=== PATIENT | male | born 1935 | race Caucasian/White ===

== ENCOUNTER 2018-06-05 22:33 | Inpatient (IN) | payer OTHER, MEDICAID ==
[~2018-06-05] VITALS: Ht 167.6 cm; Wt 80.7 kg
[2018-06-06 01:22] LABS: BASOPHILS % 0.3 % (0.0-2.0); EOSINOPHILS % 0.1 % (0.0-5.0); HEMATOCRIT. 37.8 % (42.0-52.0); LYMPHOCYTES % 9.7 % (20.0-50.0); MEAN CORPUSCULAR HEMOGLOBIN 30.1 pg (28.0-32.0); MEAN CORPUSCULAR VOLUME 87.5 fL (80.0-94.0); MEAN PLATELET VOLUME 6.8 fl (7.4-10.4); MONOCYTES % 12.9 % (2.0-8.0); PLATELET 177 x1000/uL (130-400); RED BLOOD CELL COUNT 4.32 mill/uL (4.7-6.1)
[2018-06-06 01:29] LABS: CHLORIDE 103 mEq/L (98-107)
[2018-06-06 01:32] LABS: ETHANOL BLOOD < 10 mg/dL
[2018-06-06 01:37] LABS: CREATINE KINASE 604 IU/L (39-308)
[2018-06-06 01:40] LABS: CREATINE KINASE MB FRACTION 4.2 ng/mL (0.5-3.6)
[2018-06-06 02:29] LABS: CLARITY URINE CLOUDY (CLEAR); COLOR URINE YELLOW (YELLOW); KETONES URINE NEGATIVE (NEGATIVE); LEUKOCYTE ESTERASE URINE 3+ (NEGATIVE); NITRITE URINE POSITIVE (NEGATIVE); OCCULT BLOOD URINE 2+ (NEGATIVE); PROTEIN URINE TRACE (NEGATIVE); SPECIFIC GRAVITY URINE 1.008 (1.005-1.030); UROBILINOGEN URINE 0.2 E.U./dL (0.2-1.0)
[2018-06-06 02:42] LABS: *AMPHETAMINES SCREEN URINE NEGATIVE (NEGATIVE); *BARBITURATES SCREEN URINE NEGATIVE (NEGATIVE); *BENZODIAZEPINES SCREEN URINE NEGATIVE (NEGATIVE); *COCAINE SCREEN URINE NEGATIVE (NEGATIVE); CANNABINOID URINE SCREEN NEGATIVE (NEGATIVE); METHADONE URINE SCREEN NEGATIVE (NEGATIVE); OPIATES URINE SCREEN PRESUMTIVE POSITIVE (NEGATIVE); PHENCYCLIDINE URINE SCREEN NEGATIVE (NEGATIVE)
[2018-06-06 09:30] VITALS: BP 133/66
[2018-06-06] MEDS ORDERED: ONDANSETRON HCL 4MG/2ML INJ IV PRN (10:30)
[2018-06-06] MEDS ORDERED: TAMSULOSIN HCL 0.4MG SR CAPSULE PO NR (10:30)
[2018-06-06] MEDS ORDERED: DONEPEZIL HCL 5MG TABLET PO NR (10:30)
[2018-06-06] MEDS ORDERED: GUAIFENESIN 200MG/10ML SUGAR FREE UDC PO PRN (10:30)
[2018-06-06] MEDS: MEMANTINE HCL 5MG TABLET PO SCH (11:37)
[2018-06-06] MEDS: ENOXAPARIN 40MG/0.4ML SYR SUBCUT SCH (11:39)
[2018-06-06] MEDS: ACETAMINOPHEN 325MG TABLET PO PRN (11:45)
[2018-06-06 11:59] VITALS: BP 133/66
[2018-06-06 12:00] VITALS: BP 128/68
[2018-06-06] MEDS ORDERED: TAMS0.4C31 MT (13:38)
[2018-06-06 16:00] VITALS: BP 111/55
[2018-06-06] MEDS: LEVOFLOXACIN 500MG PREMIX 100 ML IV SCH (16:10)
[2018-06-06] MEDS ORDERED: DEXTROSE 50% WATER 50ML SYRINGE IV PRN (16:30)
[2018-06-06] MEDS: BLOOD SUGAR DIAGNOSTIC STRIP TEST SCH ×2 (17:47→21:00)
[2018-06-06] MEDS: INSULIN LISPRO 100 UNITS/ML SUBCUT SCH ×2 (17:48→21:00)
[2018-06-06 20:00] VITALS: BP 109/52
[2018-06-06 22:04] LABS: BASOPHILS % 0.5 % (0.0-2.0); EOSINOPHILS % 1.5 % (0.0-5.0); HEMATOCRIT. 40.6 % (42.0-52.0); MEAN CORPUSCULAR HEMOGLOBIN 30.2 pg (28.0-32.0); MEAN CORPUSCULAR VOLUME 87.8 fL (80.0-94.0); MEAN PLATELET VOLUME 6.8 fl (7.4-10.4); MONOCYTES % 12.4 % (2.0-8.0); NEUTROPHILS % 69.6 % (40.0-76.0); PLATELET 192 x1000/uL (130-400); RED BLOOD CELL COUNT 4.63 mill/uL (4.7-6.1); RED CELL DISTRIBUTION WIDTH 14.7 % (11.6-14.6)
[2018-06-06 22:17] LABS: CHLORIDE 107 mEq/L (98-107)
[2018-06-06 22:24] LABS: LDL CHOLESTEROL 101 mg/dL (5-100)
[2018-06-06 22:25] LABS: HDL CHOLESTEROL 25 mg/dL (40-59)
[2018-06-06 22:28] LABS: CREATINE KINASE MB FRACTION 9.3 ng/mL (0.5-3.6)
[2018-06-07 00:38] VITALS: BP 122/61
[2018-06-07 04:00] VITALS: BP 117/64
[2018-06-07] MEDS: ACETAMINOPHEN 325MG TABLET PO PRN ×3 (04:12→11:45)
[2018-06-07 07:06] LABS: BASOPHILS % 0.4 % (0.0-2.0); EOSINOPHILS % 1.3 % (0.0-5.0); HEMATOCRIT. 39.6 % (42.0-52.0); HEMOGLOBIN. 13.8 g/dL (14.0-18.0); LYMPHOCYTES % 11.9 % (20.0-50.0); MEAN CORPUSCULAR HEMOGLOBIN 30.5 pg (28.0-32.0); MEAN CORPUSCULAR VOLUME 87.6 fL (80.0-94.0); MEAN PLATELET VOLUME 6.7 fl (7.4-10.4); MONOCYTES % 10.7 % (2.0-8.0); NEUTROPHILS % 75.7 % (40.0-76.0); PLATELET 198 x1000/uL (130-400); RED BLOOD CELL COUNT 4.52 mill/uL (4.7-6.1); RED CELL DISTRIBUTION WIDTH 14.8 % (11.6-14.6)
[2018-06-07 07:12] LABS: CHLORIDE 107 mEq/L (98-107)
[2018-06-07] MEDS: BLOOD SUGAR DIAGNOSTIC STRIP TEST SCH ×2 (07:20→12:20)
[2018-06-07 07:23] LABS: CREATINE KINASE MB FRACTION 7.9 ng/mL (0.5-3.6)
[2018-06-07] MEDS: INSULIN LISPRO 100 UNITS/ML SUBCUT SCH ×2 (07:50→12:50)
[2018-06-07 08:00] VITALS: BP 113/57
[2018-06-07] MEDS ORDERED: DOCUSATE SODIUM 250MG CAPSULE PO SCH (09:00)
[2018-06-07] MEDS ORDERED: TAMSULOSIN HCL 0.4MG SR CAPSULE PO SCH (09:00)
[2018-06-07] MEDS ORDERED: DONEPEZIL HCL 5MG TABLET PO SCH (09:00)
[2018-06-07] MEDS: MEMANTINE HCL 5MG TABLET PO SCH (09:50)
[2018-06-07] MEDS: ENOXAPARIN 40MG/0.4ML SYR SUBCUT SCH (09:50)
[2018-06-07 12:00] VITALS: BP 122/73
[2018-06-07] MEDS: LEVOFLOXACIN 500MG PREMIX 100 ML IV SCH (12:30)
[2018-06-07 13:19] VITALS: BP 122/73
== END 2018-06-07 18:05 | disposition home or self-care (01) | DRG 71 ==
LOC: ER 22:33 → 6WST 06-06 02:35 → EDBEDREQ 06-06 02:38 → EDBEDREQTM 06-06 02:38 → ENRESERV 06-06 07:39
PROVIDERS: ADMIT Internal Medicine Geriatric Medicine; ATTEND Internal Medicine Geriatric Medicine
DX: G93.40 Encephalopathy, unspecified (principal); N39.0 Urinary tract infection, site not specified; D64.9 Anemia, unspecified; F02.80 Dementia in other diseases classified elsewhere, unspecified severity, without behavioral disturbance, psychotic disturbance, mood disturbance, and anxiety; G30.9 Alzheimer's disease, unspecified; G89.29 Other chronic pain; M48.061 Spinal stenosis, lumbar region without neurogenic claudication; R73.9 Hyperglycemia, unspecified; M54.10 Radiculopathy, site unspecified; M54.9 Dorsalgia, unspecified
CPT/HCPCS: 36415; 71045; 72100; 80048; 80061; 80305; 80307; 80329; 82270; 82550; 82553; 82962; 83036; 84439; 84443; 84484; 87077; 87186; 93005; 93306; 93970; 97162; 99285; G0482; J1650; J1956; J7050